=== PATIENT | male | born 1995 | race Hispanic/Latino ===

== ENCOUNTER 2022-04-12 08:44 | Emergency (ER) | payer SELFPAY ==
[2022-04-12] MEDS ORDERED: IBUPROFEN 400 MG TAB ONE (10:14)
[2022-04-12] MEDS ORDERED: AZITHROMYCIN 250 MG TAB ONE (10:14)
[2022-04-12 11:38] LABS: SARS-COV-2 RT PCR NEGATIVE (NEGATIVE)
--- NOTE | 2022-04-12 11:41 | RAD REPORT ---
EXAM DESCRIPTION: RAD - Chest Pa And Lat (2 Views) - 04/12/2022 11:28 am CLINICAL HISTORY: COUGH COMPARISON: No comparisons FINDINGS: Lines: None. Lungs: No evidence of edema or pneumonia. Pleural: No significant pleural effusions or pneumothorax. Cardiac: The heart size is within normal limits. Mediastinum: Within normal limits. Bones: No acute fractures. Other: None IMPRESSION: No acute cardiopulmonary disease.
--- NOTE | 2022-04-12 11:43 | EDPHYS ---
Physician Documentation [facility] Name: Donnie Lopez Age: 26 yrs Sex: Male : 1995 Arrival Date: 04/12/2022 Time: 08:58 Bed 18 Private MD: ED Physician Kobe Tamez HPI: 04/12 11:38 This 26 yrs old Male presents to ER via Ambulatory with complaints of Flu bhavani Symptoms. 11:38 The patient or guardian reports airway noise, cough, that is intermittent. Onset: The bhavani symptoms/episode began/occurred 1 day(s) ago. Modifying factors: The symptoms are alleviated by nothing. the symptoms are aggravated by nothing. Associated signs and symptoms: The patient has no apparent associated signs or symptoms. Severity of symptoms: At their worst the symptoms were mild in the emergency department the symptoms are unchanged. The patient has not experienced similar symptoms in the past. Historical: - Allergies: 09:52 No Known Allergies; vg1 - Home Meds: 09:52 None [Active]; vg1 - PMHx: :52 None; vg1 - PSHx: 09:52 None; vg1 - Immunization history:: Client reports having NOT received the Covid vaccine. - Social history:: Smoking status: Reported history of juuling and/or vaping. ROS: 11:38 Constitutional: Negative for fever, chills, and weight loss, Eyes: Negative for injury, bhavani pain, redness, and discharge, ENT: Negative for injury, pain, and discharge, Neck: Negative for injury, pain, and swelling, Cardiovascular: Negative for chest pain, palpitations, and edema, Abdomen/GI: Negative for abdominal pain, nausea, vomiting, diarrhea, and constipation, Back: Negative for injury and pain, : Negative for injury, bleeding, discharge, and swelling, MS/Extremity: Negative for injury and deformity, Skin: Negative for injury, rash, and discoloration, Neuro: Negative for headache, weakness, numbness, tingling, and seizure, Psych: Negative for depression, anxiety, suicide ideation, homicidal ideation, and hallucinations, Allergy/Immunology: Negative for hives, rash, and allergies, Endocrine: Negative for neck swelling, polydipsia, polyuria, polyphagia, and marked weight changes, Hematologic/Lymphatic: Negative for swollen nodes, abnormal bleeding, and unusual bruising. 11:38 Respiratory: Positive for cough, with no reported sputum. Exam: 11:41 Head/Face: Normocephalic, atraumatic. Eyes: Pupils equal round and reactive to light, bhavani extra-ocular motions intact. Lids and lashes normal. Conjunctiva and sclera are non-icteric and not injected. Cornea within normal limits. Periorbital areas with no swelling, redness, or edema. ENT: Nares patent. No nasal discharge, no septal abnormalities noted. Tympanic membranes are normal and external auditory canals are clear. Oropharynx with no redness, swelling, or masses, exudates, or evidence of obstruction, uvula midline. Mucous membranes moist. Neck: Trachea midline, no thyromegaly or masses palpated, and no cervical lymphadenopathy. Supple, full range of motion without nuchal rigidity, or vertebral point tenderness. No Meningismus. Chest/axilla: Normal chest wall appearance and motion. Nontender with no deformity. No lesions are appreciated. Cardiovascular: Regular rate and rhythm with a normal S1 and S2. No gallops, murmurs, or rubs. Normal PMI, no JVD. No pulse deficits. Abdomen/GI: Soft, non-tender, with normal bowel sounds. No distension or tympany. No guarding or rebound. No evidence of tenderness throughout. Back: No spinal tenderness. No costovertebral tenderness. Full range of motion. Male : Normal genitalia with no discharge or lesions. Skin: Warm, dry with normal turgor. Normal color with no rashes, no lesions, and no evidence of cellulitis. MS/ Extremity: Pulses equal, no cyanosis. Neurovascular intact. Full, normal range of motion. Neuro: Awake and alert, GCS 15, oriented to person, place, time, and situation. Cranial nerves II-XII grossly intact. Motor strength 5/5 in all extremities. Sensory grossly intact. Cerebellar exam normal. Normal gait. Psych: Awake, alert, with orientation to person, place and time. Behavior, mood, and affect are within normal limits. 11:41 Constitutional: The patient appears febrile. 11:41 Respiratory: Exam negative for Vital Signs: 09:51 BP 132 / 89; Pulse 86; Resp 17; Temp 100.5(O); Pulse Ox 100% on R/A; Weight 108.86 kg; vg1 Height 5 ft. 10 in. (177.80 cm); Pain 5/; 09:51 Body Mass Index 34.44 (108.86 kg, 177.80 cm) vg1 MDM: 09:56 Patient medically screened. [facility] 04/12 09:31 Order name: COVID-19/FLU A+B; Complete Time: 11:40 vg1 04/12 10:58 Order name: Chest Pa And Lat (2 Views) XRAY bhavani Administered Medications: 10:22 Drug: Motrin (ibuprofen) 800 mg Route: PO; ap3 10:22 Drug: Zithromax (azithromycin) 500 mg Route: PO; ap3 12:21 Drug: Tamiflu (oseltamivir) 75 mg Route: PO; ld1 Disposition Summary: 04/12/22 11:42 Discharge Ordered Location: Home [facility] Problem: new [facility] Symptoms: have improved bhavani Condition: Stable bhavani Diagnosis - Fever, unspecified bhavani - Acute upper respiratory infection, unspecified bhavani - Influenza due to identified novel influenza A virus bhavani Followup: [facility] - With: Private Physician - When: 2 - 3 days - Reason: Recheck today's complaints, Continuance of care, Re-evaluation by your physician Discharge Instructions: - Discharge Summary Sheet bhavani - Upper Respiratory Infection, Adult bhavani - Cool Mist Vaporizer bhavani - Upper Respiratory Infection, Adult, [id number] bhavani - Influenza, Adult, [id number] hbavani - Cough, Adult [facility] Forms: - Medication Reconciliation Form [facility] - Thank You Letter bhavani - Antibiotic Education bhavani - Prescription Opioid Use bhavani - Work release form eb Prescriptions: - Tamiflu 75 mg Oral Capsule - take 1 tablet by ORAL route every 12 hours for 5 days; 10 tablet; Refills: 0, [facility] Product Selection Permitted - Zithromax Z-Scooter 250 mg Oral Tablet - take 1 tablet by ORAL route as directed for 5 days Day 1 - take two (2) tablets bhavani one time. Day 2, 3, 4 , 5 take one (1) tablet once daily.; 6 tablet; Refills: 0, Product Selection Permitted - Bromfed DM 2-30-10 mg/5 mL Oral syrup - take 10 milliliter by ORAL route every 6 hours; 160 milliliter; Refills: 0, bhavani Product Selection Permitted Signatures: Dispatcher [employer] Kobe Andres MD MD cha Prokisch, Amanda RN RN ap3 Regina Duarte RN RN vg1 Kiah Lopez, RN RN ld1
--- NOTE | 2022-04-12 11:43 | ER ---
Nurse's Notes [facility] Name: Donnie Lopez Age: 26 yrs Sex: Male : 1995 Arrival Date: 04/12/2022 Time: 08:58 Bed 18 Private MD: Diagnosis: Fever, unspecified;Acute upper respiratory infection, unspecified;Influenza due to identified novel influenza A virus Presentation: 04/12 09:51 Chief complaint: Patient states: Epigastric pain, NVD, cough/congestion since yesterday vg1 morning. Coronavirus screen: Vaccine status: Patient reports being unvaccinated. Client denies travel out of the [place] in the last 14 days. Ebola Screen: Patient negative for fever greater than or equal to 101.5 degrees Fahrenheit, and additional compatible Ebola Virus Disease symptoms Patient denies exposure to infectious person. Initial Sepsis Screen: Does the patient meet any 2 criteria? No. Patient's initial sepsis screen is negative. Does the patient have a suspected source of infection? No. Patient's initial sepsis screen is negative. Risk Assessment: Do you want to hurt yourself or someone else? Patient reports no desire to harm self or others. Onset of symptoms was April 11, 2022. 09:51 Method Of Arrival: Ambulatory vg1 09:51 Acuity: MARCOS 3 vg1 Triage Assessment: 09:52 General: Appears in no apparent distress. uncomfortable, Behavior is calm, cooperative. vg1 Pain: Complains of pain in epigastric area Pain currently is 5 out of 10 on a pain scale. Pain began 1 day ago. Neuro: Level of Consciousness is awake, alert, obeys commands, Oriented to person, place, time, situation. GI: Reports diarrhea, nausea, vomiting. Historical: - Allergies: 09:52 No Known Allergies; vg1 - Home Meds: 09:52 None [Active]; vg1 - PMHx: 09:52 None; vg1 - PSHx: 09:52 None; vg1 - Immunization history:: Client reports having NOT received the Covid vaccine. - Social history:: Smoking status: Reported history of juuling and/or vaping. Screenin:11 Abuse screen: Denies threats or abuse. Denies injuries from another. Nutritional ld1 screening: No deficits noted. Tuberculosis screening: No symptoms or risk factors identified. Fall Risk None identified. Assessment: 10:11 Reassessment: Patient appears in no apparent distress at this time. Patient and/or ld1 family updated on plan of care and expected duration. Pain level reassessed. See triage assessment. Vital Signs: 09:51 BP 132 / 89; Pulse 86; Resp 17; Temp 100.5(O); Pulse Ox 100% on R/A; Weight 108.86 kg; vg1 Height 5 ft. 10 in. (177.80 cm); Pain 5/10; 09:51 Body Mass Index 34.44 (108.86 kg, 177.80 cm) vg1 ED Course: 08:58 Patient arrived in ED. mr 09:52 Triage completed. vg1 09:52 Arm band placed on. vg1 09:56 Kobe Tamez MD is Attending Physician. [facility] 10:04 COVID-19/FLU A+B Sent. vg1 10:11 Kiah Lopez, RN is Primary Nurse. ld1 10:11 Patient has correct armband on for positive identification. Bed in low position. Call ld1 light in reach. Side rails up X2. Pulse ox on. NIBP on. Door closed. Noise minimized. 10:11 No provider procedures requiring assistance completed. Patient did not have IV access ld1 during this emergency room visit. 11:30 Chest Pa And Lat (2 Views) XRAY In Process Unspecified. EDMS Administered Medications: 10:22 Drug: Motrin (ibuprofen) 800 mg Route: PO; ap3 10:22 Drug: Zithromax (azithromycin) 500 mg Route: PO; ap3 12:21 Drug: Tamiflu (oseltamivir) 75 mg Route: PO; ld1 Medication: 10:11 VIS not applicable for this client. ld1 Outcome: 11:[address] [facility] 12:22 Discharged to home ambulatory. ld1 12:22 Condition: stable 12:22 Discharge instructions given to patient, Instructed on discharge instructions, follow up and referral plans. medication usage, Demonstrated understanding of instructions, follow-up care, medications, Prescriptions given X 3. 12:23 Patient left the ED. ld1 Signatures: Dispatcher [employer] EDMS Kobe Tamez MD MD cha Rivera, Mary mr Arti Foster, RN RN [email or web address] Regina Duarte RN RN 1 Kiah Lopez, RN RN ld1
[2022-04-12] MEDS ORDERED: OSELTAMIVIR 75 MG CAP ONE ×2 (12:16→12:21)
[2022-04-12 12:56] VITALS: BP 132/89; TEMP 100.5; O2SAT 100
== END 2022-04-12 12:23 | disposition home or self-care (01) ==
LOC: ER 08:44
DX: J10.1 Influenza due to other identified influenza virus with other respiratory manifestations (principal); Z20.822 Contact with and (suspected) exposure to COVID-19
CPT/HCPCS: 0240U; 71046; 99284; Q0144